=== PATIENT | male | born 1990 | race Caucasian/White ===

== ENCOUNTER 2020-01-07 19:55 | Emergency (ER) | payer MEDICARE, OTHER ==
[~2020-01-07] VITALS: Ht 180.3 cm; Wt 118.8 kg
[2020-01-07 20:10] VITALS: BP 116/79
--- NOTE | 2020-01-07 20:15 | Emergency Room Report ---
History of Present Illness General Source: Patient Present Illness HPI Patient has increased chest discomfort. A 29-year-old male presents after increased chest discomfort as well as difficulty with breathing. Patient reports having prior history of depression for which he takes trazodone. Reports having nonproductive cough for several weeks associated chills, vomiting and diarrhea. Denies any hematemesis or blood in stools. Reports neighbor with diagnosis of CoVID. Lives in apartment with boyfriend. Allergies: Coded Allergies: ACETAMINOPHEN (Verified Allergy, Unknown, 01/07/20) HALOPERIDOL (Verified Allergy, Unknown, 01/07/20) IBUPROFEN (Verified Allergy, Unknown, 01/07/20) PENICILLINS (Verified Allergy, Unknown, 01/07/20) Patient History Past Medical History: see triage record Reviewed Nursing Documentation: PMH: Agreed; PSxH: Agreed Review of Systems All Other Systems: negative except mentioned in HPI Physical Exam Sp02 EP Interpretation: reviewed, normal General Appearance: normal inspection, well appearing, no apparent distress, alert, GCS 15, obese Head: atraumatic ENT: normal ENT inspection, hearing grossly normal, normal voice Neck: normal inspection, full range of motion, supple, no bony tend Respiratory: normal inspection, lungs clear, normal breath sounds, no respiratory distress, no retraction, no wheezing Cardiovascular #1: regular rate, rhythm, no edema Gastrointestinal: normal inspection, normal bowel sounds, non tender, soft, no guarding, no hernia Genitourinary: no CVA tenderness Musculoskeletal: normal inspection, back normal, normal range of motion Neurologic: alert, motor strength/tone normal, cad intern III-XII nml as tested, oriented x3, responsive, speech normal, normal inspection Psychiatric: normal inspection, judgement/insight normal, mood/affect normal Medical Decision Making Diagnostic Impression: Primary Impression: Viral respiratory infection ER Course Patient presented for cough. Differential diagnosis include was not limited to viral respiratory infection, upper respiratory infection, bronchitis, pneumonia among others. Because of complexity of patient's case laboratory tests and imaging studies were ordered. Patient is afebrile with no known sick contacts or recent travel. Does not appear to be in any respiratory distress. Oxygen saturation is normal and patient is currently afebrile. Is not taking antipyretics. Patient's laboratory testing was unremarkable. Patient was noted to have symptoms consistent with a viral respiratory infection. Patient was advised to self quarantine. Patient is advised to return if any worsening condition or if any changes in status that are concerning. No evidence of systemic toxicity or hypoxia. Patient advised to self quarantine at home for two weeks. Advised to return if worse.Was advised to return if began having fever increased difficulty breathing or other concerns. The patient is advised to follow up with primary care doctor for recheck. Labs Test 01/07/20 20:30 01/07/20 20:45 White Blood Count 8.0 K/UL (4.8-10.8) Red Blood Count 5.57 M/UL (4.70-6.10) Hemoglobin 15.3 G/DL (14.2-18.0) Hematocrit 46.4 % (42.0-52.0) Mean Corpuscular Volume 83 FL (80-99) Mean Corpuscular Hemoglobin 27.5 PG (27.0-31.0) Mean Corpuscular Hemoglobin Concent 33.0 G/DL (32.0-36.0) Red Cell Distribution Width 13.0 % (11.6-14.8) Platelet Count 194 K/UL (150-450) Mean Platelet Volume 8.7 FL (6.5-10.1) Neutrophils (%) (Auto) 55.1 % (45.0-75.0) Lymphocytes (%) (Auto) 35.8 % (20.0-45.0) Monocytes (%) (Auto) 6.3 % (1.0-10.0) Eosinophils (%) (Auto) 0.7 % (0.0-3.0) Basophils (%) (Auto) 2.1 % (0.0-2.0) Sodium Level 142 MMOL/L (136-145) Potassium Level 3.9 MMOL/L (3.5-5.1) Chloride Level 103 MMOL/L (98-107) Carbon Dioxide Level 29 MMOL/L (21-32) Anion Gap 10 mmol/L (5-15) Blood Urea Nitrogen 15 mg/dL (7-18) Creatinine 1.1 MG/DL (0.55-1.30) Estimat Glomerular Filtration Rate > 60 mL/min (>60) Glucose Level 88 MG/DL (74-106) Lactic Acid Level 1.60 mmol/L (0.4-2.0) Calcium Level 9.3 MG/DL (8.5-10.1) Phosphorus Level 4.1 MG/DL (2.5-4.9) Magnesium Level 1.7 MG/DL (1.8-2.4) Total Bilirubin 0.3 MG/DL (0.2-1.0) Aspartate Amino Transf (AST/SGOT) 22 U/L (15-37) Alanine Aminotransferase (ALT/SGPT) 28 U/L (12-78) Alkaline Phosphatase 68 U/L (46-116) Total Creatine Kinase 245 U/L (26-308) Creatine Kinase MB 2.7 NG/ML (0.0-3.6) Creatine Kinase MB Relative Index 1.1 Troponin I 0.002 ng/mL (0.000-0.056) Total Protein 7.3 G/DL (6.4-8.2) Albumin 3.9 G/DL (3.4-5.0) Globulin 3.4 g/dL Albumin/Globulin Ratio 1.1 (1.0-2.7) Urine Color Yellow Urine Appearance Clear Urine pH 5 (4.5-8.0) Urine Specific [place] 1.020 (1.005-1.035) Urine Protein 1+ (NEGATIVE) Urine Glucose (UA) Negative (NEGATIVE) Urine Ketones Negative (NEGATIVE) Urine Blood Negative (NEGATIVE) Urine Nitrite Negative (NEGATIVE) Urine Bilirubin Negative (NEGATIVE) Urine Urobilinogen Normal MG/DL (0.0-1.0) Urine Leukocyte Esterase Negative (NEGATIVE) Urine RBC 0-2 /HPF (0 - 0) Urine WBC 0-2 /HPF (0 - 0) Urine Squamous Epithelial Cells None /LPF (NONE/OCC) Urine Bacteria Few /HPF (NONE) Status: improved Disposition: HOME, SELF-CARE Condition: Stable Scripts Zinc (ZINC) 50 Mg Tablet 50 MG ORAL DAILY, #30 TAB Prov: Pablo Boateng MD 01/07/20 Pablo Boateng MD Jan 07, 2020 20:15
--- NOTE | 2020-01-07 20:20 | NUR ---
ED Nurse Note: Pt ambulated to ED from home c/o CP as of today, pt has had flu-like symptoms as well as 105 fevers [id number], taking ice baths to manage. Pt placed in isolated room
[2020-01-07 21:05] LABS: BASOPHILS % (AUTO) 2.1 % (0.0-2.0); EOSINOPHILS % (AUTO) 0.7 % (0.0-3.0); HEMATOCRIT 46.4 % (42.0-52.0); HEMOGLOBIN 15.3 G/DL (14.2-18.0); LYMPHOCYTES % (AUTO) 35.8 % (20.0-45.0); MEAN CORPUSCULAR VOLUME 83 FL (80-99); MONOCYTES % (AUTO) 6.3 % (1.0-10.0); NEUTROPHILS % (AUTO) 55.1 % (45.0-75.0); PLATELET COUNT 194 K/UL (150-450); RED BLOOD COUNT 5.57 M/UL (4.70-6.10)
[2020-01-07 21:05] LABS: APPEARANCE,URINE CLEAR; BILIRUBIN, URINE NEGATIVE (NEGATIVE); GLUCOSE, URINE (UA) NEGATIVE (NEGATIVE); KETONES,URINE NEGATIVE (NEGATIVE); LEUKOCYTE ESTERASE ,URINE NEGATIVE (NEGATIVE); NITRITE,URINE NEGATIVE (NEGATIVE); PH,URINE 5 (4.5-8.0); PROTEIN,URINE 1+ (NEGATIVE); UROBILINOGEN,URINE NORMAL MG/DL (0.0-1.0)
[2020-01-07 21:07] LABS: COLOR,URINE YELLOW
[2020-01-07 21:07] LABS: ANION GAP 10 mmol/L (5-15); BLOOD UREA NITROGEN 15 mg/dL (7-18); CALCIUM 9.3 MG/DL (8.5-10.1); CARBON DIOXIDE 29 MMOL/L (21-32); CHLORIDE 103 MMOL/L (98-107); CREATININE 1.1 MG/DL (0.55-1.30); POTASSIUM 3.9 MMOL/L (3.5-5.1); SODIUM 142 MMOL/L (136-145)
--- NOTE | 2020-01-07 21:07 | Diagnostic Imaging Report ---
Indication: Shortness of breath Technique: One view of the chest Comparison: none Findings: Lungs and pleural spaces are clear. Heart size is normal. Round foreign body projects over the right chest wall Impression: No acute process This agrees with the preliminary interpretation provided overnight by [facility]iology service.
[2020-01-07 21:20] LABS: ALANINE AMINOTRANSFERASE 28 U/L (12-78); ALBUMIN 3.9 G/DL (3.4-5.0); ALBUMIN/GLOBULIN RATIO 1.1 (1.0-2.7); ALKALINE PHOSPHATASE 68 U/L (46-116); ASPARTATE AMINO TRANSFERASE 22 U/L (15-37); BILIRUBIN,TOTAL 0.3 MG/DL (0.2-1.0); CKMB 2.7 NG/ML (0.0-3.6); CREATINE KINASE 245 U/L (26-308); PHOSPHORUS 4.1 MG/DL (2.5-4.9)
[2020-01-07] MEDS ORDERED: ZINC50 M1 ORAL (21:40)
[2020-01-07 22:10] VITALS: BP 116/79
--- NOTE | 2020-01-07 22:10 | NUR ---
ER DISCHARGE NOTE: Patient is cleared to be discharged per ERMD, pt is aox4, on room air, with stable vital signs. pt was given dc and prescription instructions, pt was able to verbalize understanding, pt id band and iv site removed without complications. pt is able to ambulate with steady gait. pt took all belongings.
== END 2020-01-07 22:10 | disposition home or self-care (01) ==
LOC: EMR 20:20
DX: J06.9 Acute upper respiratory infection, unspecified (principal); F32.9 Major depressive disorder, single episode, unspecified; Z79.899 Other long term (current) drug therapy; Z88.0 Allergy status to penicillin; Z88.6 Allergy status to analgesic agent; E66.9 Obesity, unspecified; R05 Cough
CPT/HCPCS: 36415; 71045; 80053; 81003; 82550; 82553; 83605; 83735; 84100; 84484; 85025; 86710; 87040; 93005; 99284